=== PATIENT | female | born 1955 | race Two or more races ===

== ENCOUNTER 2017-07-29 18:15 | Inpatient (IN) | payer OTHER ==
[~2017-07-29] VITALS: Ht 154.9 cm; Wt 81.2 kg
[2017-07-29] MEDS ORDERED: LORAZEPAM 2MG/ML CPJ ONE ×2 (18:43→18:52)
[2017-07-29] MEDS ORDERED: SODIUM CHLORIDE 0.9% 1000ML BAG (SEPSIS BOLUS) IV ONE (19:00)
[2017-07-29] MEDS ORDERED: LORAZEPAM 2MG/ML CPJ IV ONE ×3 (19:00)
[2017-07-29] MEDS ORDERED: LEVETIRACETAM 500MG PREMIX 100 ML IV ONE (19:00)
[2017-07-29 19:50] LABS: BASOPHILS % 1.1 % (0.0-2.0); EOSINOPHILS % 4.4 % (0.0-5.0); HEMATOCRIT. 30.2 % (36.0-48.0); HEMOGLOBIN. 9.7 g/dL (12.0-16.0); LYMPHOCYTES % 15.3 % (20.0-50.0); MEAN CORPUSCULAR HEMOGLOBIN 25.8 pg (28.0-32.0); MEAN CORPUSCULAR VOLUME 80.5 fL (81.0-99.0); MEAN PLATELET VOLUME 8.8 fl (7.4-10.4); MONOCYTES % 5.7 % (2.0-8.0); NEUTROPHILS % 73.5 % (40.0-76.0); PLATELET 342 x1000/uL (130-400); RED BLOOD CELL COUNT 3.74 mill/uL (4.2-5.4); RED CELL DISTRIBUTION WIDTH 18.9 % (11.6-14.6)
[2017-07-29 19:56] LABS: PARTIAL THROMBOPLASTIN TIME 26.6 sec (23.4-31.0); PROTHROMBIN TIME 10.4 sec (9.4-11.6)
[2017-07-29 19:59] LABS: CARBON DIOXIDE 25 mEq/L (21-32); CHLORIDE 106 mEq/L (98-107); ETHANOL BLOOD < 10 mg/dL
[2017-07-29 20:04] LABS: TROPONIN I < 0.02 ng/mL (0.00-0.04)
[2017-07-29 23:00] VITALS: BP 121/55
[2017-07-29] MEDS ORDERED: MAGNESIUM/ALUMINUM HYDROXIDE/SIMETHICONE 30ML UDC PO PRN (23:00)
[2017-07-29] MEDS ORDERED: NA PHOS,M-B/NA PHOS,DI-BA ENEMA 118ML PR PRN (23:00)
[2017-07-29] MEDS ORDERED: ACETAMINOPHEN 650MG/20.3ML UDC GT PRN (23:00)
[2017-07-29] MEDS ORDERED: GUAIFENESIN 200MG/10ML SUGAR FREE UDC PO PRN (23:00)
[2017-07-29] MEDS ORDERED: DIPHENHYDRAMINE 50MG/ML VIAL IV PRN (23:00)
[2017-07-29] MEDS ORDERED: ONDANSETRON HCL 4MG/2ML VIAL IV PRN (23:00)
[2017-07-29] MEDS ORDERED: LORAZEPAM 2MG/ML CPJ IV PRN ×2 (23:00)
[2017-07-29] MEDS ORDERED: ACETAMINOPHEN 650MG SUPP PR PRN (23:00)
[2017-07-29] MEDS ORDERED: CLONIDINE 0.1MG TABLET PO PRN (23:00)
[2017-07-29] MEDS ORDERED: DOCUSATE SODIUM 100MG CAPSULE PO PRN (23:00)
[2017-07-29] MEDS ORDERED: IPRATROPIUM/ALBUTEROL 0.5-3(2.5)MG/3ML NEB INH PRN (23:00)
[2017-07-29 23:30] VITALS: BP 121/55
[2017-07-30] VITALS (16 sets, daily range): BP systolic 104–147; BP diastolic 54–82
[2017-07-30] MEDS: ENOXAPARIN 40MG/0.4ML SYR SUBCUT SCH ×2 (01:40→23:58)
[2017-07-30] MEDS: SODIUM CHLORIDE 0.45% 1,000 ML IV SCH ×2 (01:40→18:50)
[2017-07-30] MEDS: SODIUM CHLORIDE 0.9% INJ 3ML FLUSH IVF SCH ×3 (05:41→21:35)
[2017-07-30 07:11] LABS: EOSINOPHILS % 5.8 % (0.0-5.0); HEMATOCRIT. 30.7 % (36.0-48.0); LYMPHOCYTES % 23.6 % (20.0-50.0); MEAN CORPUSCULAR VOLUME 82.8 fL (81.0-99.0); MEAN PLATELET VOLUME 9.1 fl (7.4-10.4); MONOCYTES % 5.3 % (2.0-8.0); NEUTROPHILS % 64.3 % (40.0-76.0); PLATELET 275 x1000/uL (130-400); RED CELL DISTRIBUTION WIDTH 18.3 % (11.6-14.6)
[2017-07-30 07:20] LABS: CARBON DIOXIDE 23 mEq/L (21-32); CHLORIDE 105 mEq/L (98-107); HDL CHOLESTEROL 29 mg/dL (40-59); LDL CHOLESTEROL 85 mg/dL (5-100)
[2017-07-30] MEDS: LEVETIRACETAM 500MG TABLET PO SCH ×2 (09:58→21:35)
[2017-07-30] MEDS: ACETAMINOPHEN 325MG TABLET PO PRN (18:52)
[2017-07-31] VITALS (12 sets, daily range): BP systolic 120–158; BP diastolic 53–81
[2017-07-31] MEDS: ACETAMINOPHEN 325MG TABLET PO PRN ×2 (05:40→13:00)
[2017-07-31] MEDS: SODIUM CHLORIDE 0.9% INJ 3ML FLUSH IVF SCH (05:40)
[2017-07-31] MEDS: SODIUM CHLORIDE 0.45% 1,000 ML IV SCH (08:45)
[2017-07-31] MEDS: LEVETIRACETAM 500MG TABLET PO SCH (08:45)
[2017-07-31] MEDS ORDERED: KEPP500 PO (12:33)
[2017-07-31 12:43] LABS: CLARITY URINE CLEAR (CLEAR); COLOR URINE YELLOW (YELLOW); GLUCOSE URINE NEGATIVE (NEGATIVE); KETONES URINE NEGATIVE (NEGATIVE); LEUKOCYTE ESTERASE URINE TRACE (NEGATIVE); NITRITE URINE NEGATIVE (NEGATIVE); OCCULT BLOOD URINE NEGATIVE (NEGATIVE); PROTEIN URINE NEGATIVE (NEGATIVE); UROBILINOGEN URINE 0.2 E.U./dL (0.2-1.0)
[2017-07-31 13:01] LABS: *AMPHETAMINES SCREEN URINE NEGATIVE (NEGATIVE); *BARBITURATES SCREEN URINE NEGATIVE (NEGATIVE); *BENZODIAZEPINES SCREEN URINE NEGATIVE (NEGATIVE); *COCAINE SCREEN URINE NEGATIVE (NEGATIVE); CANNABINOID URINE SCREEN NEGATIVE (NEGATIVE); METHADONE URINE SCREEN NEGATIVE (NEGATIVE); OPIATES URINE SCREEN NEGATIVE (NEGATIVE); PHENCYCLIDINE URINE SCREEN NEGATIVE (NEGATIVE)
== END 2017-07-31 15:43 | disposition home or self-care (01) | DRG 53 ==
LOC: ER 18:15 → 5EST 20:35 → EDBD 20:35 → ENRESERV 21:17
PROVIDERS: ADMIT Family Medicine; ATTEND Family Medicine
DX: G40.911 Epilepsy, unspecified, intractable, with status epilepticus (principal); G93.89 Other specified disorders of brain; E44.1 Mild protein-calorie malnutrition; I10 Essential (primary) hypertension; D63.8 Anemia in other chronic diseases classified elsewhere; E11.9 Type 2 diabetes mellitus without complications; J32.0 Chronic maxillary sinusitis; J32.3 Chronic sphenoidal sinusitis; Z88.0 Allergy status to penicillin; Z90.12 Acquired absence of left breast and nipple
CPT/HCPCS: 36415; 70450; 71010; 80053; 80061; 80305; 81001; 82962; 83605; 83880; 84484; 85025; 85610; 85730; 86850; 86900; 87040; 87086; 93005; 96365; 96366; 97162; 99291; G0482; J1650; J1953; J2060; J7030

== ENCOUNTER 2017-10-04 23:01 | Emergency (ER) | payer OTHER ==
[~2017-10-04] VITALS: Ht 165.1 cm; Wt 72.0 kg
[~2017-10-04 23:01] MED LIST: KEPP500 PO
[2017-10-05] MEDS ORDERED: LEVETIRACETAM 500MG PREMIX 100 ML IV ONE (00:45)
[2017-10-05 01:09] LABS: BASOPHILS % 1.3 % (0.0-2.0); HEMATOCRIT. 30.8 % (36.0-48.0); LYMPHOCYTES % 11.7 % (20.0-50.0); MEAN CORPUSCULAR HEMOGLOBIN 23.8 pg (28.0-32.0); MEAN CORPUSCULAR VOLUME 73.5 fL (81.0-99.0); MONOCYTES % 4.7 % (2.0-8.0); NEUTROPHILS % 82.3 % (40.0-76.0); RED CELL DISTRIBUTION WIDTH 20.8 % (11.6-14.6)
[2017-10-05 01:21] LABS: CARBON DIOXIDE 28 mEq/L (21-32); CHLORIDE 94 mEq/L (98-107)
[2017-10-05 04:24] VITALS: BP 100/60
== END 2017-10-05 05:20 | disposition home or self-care (01) ==
LOC: ER 23:16
DX: G40.909 Epilepsy, unspecified, not intractable, without status epilepticus (principal); S00.512A Abrasion of oral cavity, initial encounter; E11.9 Type 2 diabetes mellitus without complications; Z88.0 Allergy status to penicillin; Z88.2 Allergy status to sulfonamides; Z91.14 Patient's other noncompliance with medication regimen; X58.XXXA Exposure to other specified factors, initial encounter; Y93.89 Activity, other specified; Y92.018 Other place in single-family (private) house as the place of occurrence of the external cause
CPT/HCPCS: 36415; 80048; 85025; 93005; 96365; 99285; J1953

== ENCOUNTER 2018-01-23 19:28 | Emergency (ER) | payer OTHER ==
[~2018-01-23] VITALS: Ht 165.1 cm; Wt 87.0 kg
[2018-01-23 20:44] LABS: BASOPHILS % 1.2 % (0.0-2.0); EOSINOPHILS % 6.5 % (0.0-5.0); HEMATOCRIT. 29.3 % (36.0-48.0); HEMOGLOBIN. 9.7 g/dL (12.0-16.0); LYMPHOCYTES % 28.7 % (20.0-50.0); MEAN CORPUSCULAR VOLUME 84.2 fL (81.0-99.0); MEAN PLATELET VOLUME 8.6 fl (7.4-10.4); MONOCYTES % 8.4 % (2.0-8.0); NEUTROPHILS % 55.2 % (40.0-76.0); PLATELET 379 x1000/uL (130-400); RED BLOOD CELL COUNT 3.48 mill/uL (4.2-5.4); RED CELL DISTRIBUTION WIDTH 20.1 % (11.6-14.6)
[2018-01-23 20:50] LABS: CHLORIDE 105 mEq/L (98-107)
[2018-01-23 20:51] LABS: PROTHROMBIN TIME 10.2 sec (9.4-11.6)
[2018-01-23] MEDS ORDERED: ONDANSETRON HCL 4MG/2ML VIAL IV STA (21:01)
[2018-01-23] MEDS ORDERED: SODIUM CHLORIDE 0.9% 1,000 ML IV ONE (21:01)
[2018-01-23] MEDS ORDERED: MORPHINE SULFATE 4 MG/ML CPJ (NOT FOR IM USE) IV STA (21:01)
[2018-01-23 23:08] LABS: CREATINE KINASE 74 IU/L (26-192)
[2018-01-24] MEDS ORDERED: IBUPROFEN 400MG TABLET PO ONE (01:30)
[2018-01-24 01:42] VITALS: BP 137/62
== END 2018-01-24 01:54 | disposition home or self-care (01) ==
LOC: ER 20:12
DX: S80.11XA Contusion of right lower leg, initial encounter (principal); S63.92XA Sprain of unspecified part of left wrist and hand, initial encounter; D64.9 Anemia, unspecified; M25.561 Pain in right knee; E11.9 Type 2 diabetes mellitus without complications; I10 Essential (primary) hypertension; Z88.0 Allergy status to penicillin; V79.3XXA Bus occupant (driver) (passenger) injured in unspecified nontraffic accident, initial encounter; Y93.89 Activity, other specified; Y92.480 Sidewalk as the place of occurrence of the external cause
CPT/HCPCS: 36415; 71045; 73130; 73562; 73590; 80053; 82550; 85025; 85610; 86850; 86900; 86901; 93005; 96361; 96374; 96375; 99285; J2270; J2405; J7030; L1830; Z7610

== ENCOUNTER 2018-07-12 12:48 | Emergency (ER) | payer OTHER ==
[~2018-07-12] VITALS: Ht 152.4 cm; Wt 82.0 kg
[2018-07-12] MEDS ORDERED: ONDANSETRON HCL 4MG/2ML INJ IV STA (17:21)
[2018-07-12] MEDS ORDERED: MORPHINE SULFATE 4 MG/ML CPJ (NOT FOR IM USE) IV STA ×2 (17:21→19:51)
[2018-07-12] MEDS ORDERED: MAGNESIUM/ALUMINUM HYDROXIDE/SIMETHICONE 30ML UDC PO STA (17:21)
[2018-07-12 17:37] LABS: CLARITY URINE CLEAR (CLEAR); COLOR URINE YELLOW (YELLOW); KETONES URINE NEGATIVE (NEGATIVE); LEUKOCYTE ESTERASE URINE NEGATIVE (NEGATIVE); NITRITE URINE NEGATIVE (NEGATIVE); OCCULT BLOOD URINE NEGATIVE (NEGATIVE); PROTEIN URINE NEGATIVE (NEGATIVE); SPECIFIC GRAVITY URINE 1.003 (1.005-1.030); UROBILINOGEN URINE 0.2 E.U./dL (0.2-1.0)
[2018-07-12 18:09] LABS: BASOPHILS % 1.2 % (0.0-2.0); EOSINOPHILS % 4.5 % (0.0-5.0); HEMOGLOBIN. 10.6 g/dL (12.0-16.0); LYMPHOCYTES % 22.8 % (20.0-50.0); MEAN CORPUSCULAR HEMOGLOBIN 31.8 pg (28.0-32.0); MEAN PLATELET VOLUME 9.4 fl (7.4-10.4); MONOCYTES % 8.8 % (2.0-8.0); NEUTROPHILS % 62.7 % (40.0-76.0); PLATELET 313 x1000/uL (130-400); RED BLOOD CELL COUNT 3.33 mill/uL (4.2-5.4); RED CELL DISTRIBUTION WIDTH 20.2 % (11.6-14.6)
[2018-07-12 18:15] LABS: CHLORIDE 104 mEq/L (98-107)
[2018-07-12 21:47] VITALS: BP 132/58
[2018-07-12] MEDS ORDERED: IOHEXOL-300 100 ML BOTTLE ONE (21:47)
== END 2018-07-12 21:50 | disposition home or self-care (01) ==
LOC: ER 12:48
DX: R10.12 Left upper quadrant pain (principal); M79.671 Pain in right foot; G40.909 Epilepsy, unspecified, not intractable, without status epilepticus; E11.9 Type 2 diabetes mellitus without complications; I10 Essential (primary) hypertension; Z90.49 Acquired absence of other specified parts of digestive tract; Z88.0 Allergy status to penicillin; Z88.2 Allergy status to sulfonamides
CPT/HCPCS: 36415; 71045; 73630; 74177; 80053; 81003; 83605; 83690; 83880; 84484; 85025; 85610; 93005; 96374; 96375; 96376; 99285; J2270; J2405; Q9967

== ENCOUNTER 2018-12-04 13:15 | Inpatient (IN) | payer OTHER ==
[~2018-12-04] VITALS: Ht 152.4 cm; Wt 93.4 kg
[2018-12-04] MEDS ORDERED: METF-416 PO (13:28)
[2018-12-04] MEDS ORDERED: ASPI-1159 PO (13:28)
[2018-12-04] MEDS ORDERED: RANI75TA19 PO (13:28)
[2018-12-04] MEDS ORDERED: LOSA100T14 PO (13:28)
[2018-12-04] MEDS ORDERED: RANI15SY PO (13:28)
[2018-12-04] MEDS ORDERED: NAPR-681 PO (13:28)
[2018-12-04] MEDS ORDERED: FOLI-43 PO (13:28)
[2018-12-04] MEDS ORDERED: MECL-109 PO (13:28)
[2018-12-04] MEDS ORDERED: METH2.5T PO (13:28)
[2018-12-04] MEDS ORDERED: ASPIRIN 81MG TABLET PO ONE (13:45)
[2018-12-04] MEDS: NITROGLYCERIN 0.4MG TABLET SL SL PRN ×4 (16:00→20:27)
[2018-12-04 16:41] LABS: CHLORIDE 103 mEq/L (98-107)
[2018-12-04 16:44] LABS: BASOPHILS % 0.4 % (0.0-2.0); EOSINOPHILS % 0.8 % (0.0-5.0); HEMATOCRIT. 29.8 % (36.0-48.0); HEMOGLOBIN. 9.9 g/dL (12.0-16.0); LYMPHOCYTES % 9.8 % (20.0-50.0); MEAN CORPUSCULAR HEMOGLOBIN 30.2 pg (28.0-32.0); MEAN CORPUSCULAR VOLUME 90.9 fL (81.0-99.0); MEAN PLATELET VOLUME 9.8 fl (7.4-10.4); MONOCYTES % 3.4 % (2.0-8.0); NEUTROPHILS % 85.6 % (40.0-76.0); PLATELET 320 x1000/uL (130-400); RED BLOOD CELL COUNT 3.28 mill/uL (4.2-5.4)
[2018-12-04 16:47] LABS: D-DIMER 0.8 mg/L FEU (<0.50); PARTIAL THROMBOPLASTIN TIME 29.4 sec (23.4-31.0); PROTHROMBIN TIME 10.5 sec (9.1-11.1)
[2018-12-04] MEDS ORDERED: SODIUM CHLORIDE 0.9% 1000ML BAG (SEPSIS BOLUS) IV ONE (17:15)
[2018-12-04] MEDS ORDERED: LEVOFLOXACIN 750MG PREMIX 150 ML IV ONE (17:15)
[2018-12-04 19:40] LABS: CLARITY URINE CLEAR (CLEAR); COLOR URINE YELLOW (YELLOW); KETONES URINE NEGATIVE (NEGATIVE); LEUKOCYTE ESTERASE URINE NEGATIVE (NEGATIVE); NITRITE URINE NEGATIVE (NEGATIVE); OCCULT BLOOD URINE NEGATIVE (NEGATIVE); PROTEIN URINE NEGATIVE (NEGATIVE); SPECIFIC GRAVITY URINE 1.007 (1.005-1.030); UROBILINOGEN URINE 0.2 E.U./dL (0.2-1.0)
[2018-12-04] MEDS ORDERED: ACETAMINOPHEN 325MG TABLET PO PRN (21:00)
[2018-12-04] MEDS ORDERED: CLONIDINE 0.1MG TABLET PO PRN (21:00)
[2018-12-04] MEDS ORDERED: KETOROLAC 30MG/ML VIAL IV PRN (21:00)
[2018-12-04] MEDS ORDERED: DEXTROSE 50% WATER 50ML SYRINGE IV PRN (21:00)
[2018-12-04] MEDS ORDERED: ONDANSETRON HCL 4MG/2ML INJ IV PRN (21:00)
[2018-12-04] MEDS ORDERED: LEVOFLOXACIN 500MG PREMIX 100 ML IV SCH (21:00)
[2018-12-04] MEDS ORDERED: MAGNESIUM/ALUMINUM HYDROXIDE/SIMETHICONE 30ML UDC PO PRN (21:00)
[2018-12-04] MEDS ORDERED: TEMAZEPAM 15MG CAPSULE PO PRN (21:15)
[2018-12-04] MEDS ORDERED: MAGNESIUM HYDROXIDE 400MG/5ML 30ML UDC PO PRN (21:15)
[2018-12-05] VITALS (8 sets, daily range): BP systolic 92–140; BP diastolic 47–83
[2018-12-05] MEDS ORDERED: IOHEXOL-350 100 ML BOTTLE ONE (02:04)
[2018-12-05] MEDS: SODIUM CHLORIDE 0.9% INJ 3ML FLUSH IVF SCH ×2 (02:25→14:03)
[2018-12-05] MEDS: HYDROMORPHONE HCL/PF 2MG/ML CPJ IV PRN ×2 (02:26→11:59)
[2018-12-05] MEDS: BLOOD SUGAR DIAGNOSTIC STRIP TEST SCH ×3 (07:40→17:07)
[2018-12-05] MEDS ORDERED: PNEUMOCOCCAL 23-VAL P-SAC VAC 0.5 ML IM ONE (08:00)
[2018-12-05] MEDS: INSULIN LISPRO 100 UNITS/ML SUBCUT SCH ×3 (08:10→17:19)
[2018-12-05] MEDS ORDERED: FAMOTIDINE 20MG TABLET PO SCH (09:00)
[2018-12-05] MEDS ORDERED: ENOXAPARIN 30MG/0.3ML SYR SUBCUT SCH (09:00)
[2018-12-05] MEDS ORDERED: PHEN100C4 PO (10:39)
[2018-12-05] MEDS ORDERED: LEVOFLOXACIN 500MG PREMIX 100 ML IV SCH (18:00)
[2018-12-05] MEDS ORDERED: PHENYTOIN SODIUM EXTENDED 100MG CAPSULE PO SCH (21:00)
== END 2018-12-05 20:03 | disposition home or self-care (01) | DRG 139 ==
LOC: ER 13:15 → 7WST 19:41 → EDBEDREQTM 19:51 → EDBEDREQ 19:51 → ENRESERV 22:44
PROVIDERS: ADMIT Internal Medicine; ATTEND Internal Medicine
DX: J18.9 Pneumonia, unspecified organism (principal); R65.10 Systemic inflammatory response syndrome (SIRS) of non-infectious origin without acute organ dysfunction; E83.51 Hypocalcemia; E87.1 Hypo-osmolality and hyponatremia; E44.1 Mild protein-calorie malnutrition; E11.9 Type 2 diabetes mellitus without complications; G40.909 Epilepsy, unspecified, not intractable, without status epilepticus; I10 Essential (primary) hypertension; M19.90 Unspecified osteoarthritis, unspecified site; Z82.49 Family history of ischemic heart disease and other diseases of the circulatory system; Z83.3 Family history of diabetes mellitus; Z90.49 Acquired absence of other specified parts of digestive tract; Z88.2 Allergy status to sulfonamides; Z88.0 Allergy status to penicillin; M94.0 Chondrocostal junction syndrome [Tietze]
CPT/HCPCS: 36415; 71045; 71275; 78582; 80185; 82962; 83605; 83880; 84484; 85379; 90732; 93005; 93970; 96374; 99285; A6261; A9558; J1170; J1650; J1815; J1885; J1956; J7030; Q9967

== ENCOUNTER 2019-11-28 19:28 | Inpatient (IN) | payer OTHER ==
[~2019-11-28] VITALS: Ht 157.5 cm; Wt 85.7 kg
[~2019-11-28 19:28] MED LIST changes: +ASPI-1497 PO; +FOLI-43 PO; +LOSA100T32 PO; +MECL-159 PO; +METF-416 PO; +METH2.5T PO; +NAPR-681 PO; +PHEN100C4 PO; +RANI-383 PO
[2019-11-28] MEDS ORDERED: SODIUM CHLORIDE 0.9% 1,000 ML IV ONE (19:48)
[2019-11-28] MEDS ORDERED: LEVETIRACETAM 500MG PREMIX 100 ML IV ONE (20:00)
[2019-11-28] MEDS ORDERED: LORAZEPAM 2MG/ML CPJ ONE (20:28)
[2019-11-28] MEDS ORDERED: LORAZEPAM 2MG/ML CPJ IV ONE (20:30)
[2019-11-28 20:52] LABS: BASOPHILS % 0.7 % (0.0-2.0); EOSINOPHILS % 0.2 % (0.0-5.0); HEMOGLOBIN. 11.5 g/dL (12.0-16.0); LYMPHOCYTES % 8.3 % (20.0-50.0); MEAN PLATELET VOLUME 10.3 fl (7.4-10.4); MONOCYTES % 1.8 % (2.0-8.0); PLATELET 379 x1000/uL (130-400); RED BLOOD CELL COUNT 3.72 mill/uL (4.2-5.4); RED CELL DISTRIBUTION WIDTH 20.4 % (11.6-14.6)
[2019-11-28 20:56] LABS: CHLORIDE 102 mEq/L (98-107)
[2019-11-28 21:00] LABS: CLARITY URINE CLEAR (CLEAR); COLOR URINE YELLOW (YELLOW); KETONES URINE NEGATIVE (NEGATIVE); LEUKOCYTE ESTERASE URINE NEGATIVE (NEGATIVE); NITRITE URINE NEGATIVE (NEGATIVE); OCCULT BLOOD URINE NEGATIVE (NEGATIVE); PROTEIN URINE 2+ (NEGATIVE); SPECIFIC GRAVITY URINE 1.015 (1.005-1.030); UROBILINOGEN URINE 0.2 E.U./dL (0.2-1.0)
[2019-11-28 21:02] LABS: ETHANOL BLOOD < 10 mg/dL
[2019-11-28 21:05] LABS: CREATINE KINASE 226 IU/L (26-192); PHENOBARBITAL 3.7 ug/mL (15.0-40.0); VALPROIC ACID <3.0 ug/mL ug/mL (50-100)
[2019-11-28 21:06] LABS: PARTIAL THROMBOPLASTIN TIME 27.8 sec (23.4-31.0); PROTHROMBIN TIME 10.4 sec (9.6-11.0)
[2019-11-28 21:15] LABS: HCG SCREEN NEGATIVE
[2019-11-28 21:16] LABS: CARBAMAZEPINE < 0.5 ug/mL (4-12)
[2019-11-28 21:22] LABS: *AMPHETAMINES SCREEN URINE NEGATIVE (NEGATIVE); *BARBITURATES SCREEN URINE NEGATIVE (NEGATIVE)
[2019-11-28 21:23] LABS: *BENZODIAZEPINES SCREEN URINE NEGATIVE (NEGATIVE); *COCAINE SCREEN URINE NEGATIVE (NEGATIVE); CANNABINOID URINE SCREEN NEGATIVE (NEGATIVE); OPIATES URINE SCREEN NEGATIVE (NEGATIVE); PHENCYCLIDINE URINE SCREEN NEGATIVE (NEGATIVE)
[2019-11-28 21:24] LABS: METHADONE URINE SCREEN NEGATIVE (NEGATIVE)
[2019-11-29 05:56] LABS: CHLORIDE 108 mEq/L (98-107)
[2019-11-29 05:59] LABS: BASOPHILS % 0.3 % (0.0-2.0); HEMATOCRIT. 29.9 % (36.0-48.0); HEMOGLOBIN. 10.4 g/dL (12.0-16.0); LYMPHOCYTES % 9.7 % (20.0-50.0); MEAN CORPUSCULAR HEMOGLOBIN 34.7 pg (28.0-32.0); MEAN CORPUSCULAR VOLUME 99.6 fL (81.0-99.0); MONOCYTES % 3.1 % (2.0-8.0); NEUTROPHILS % 86.9 % (40.0-76.0); PLATELET 352 x1000/uL (130-400)
[2019-11-29] MEDS ORDERED: LEVETIRACETAM 500MG PREMIX 100 ML IV SCH (06:15)
[2019-11-29] MEDS ORDERED: MECLIZINE 25MG TABLET PO PRN (08:00)
[2019-11-29] MEDS ORDERED: METHOTREXATE SODIUM 2 . 5MG TABLET PO SCH (09:00)
[2019-11-29 10:30] VITALS: BP 145/68
[2019-11-29] MEDS: ASPIRIN 81MG EC TABLET PO SCH (11:11)
[2019-11-29] MEDS: PHENYTOIN SODIUM EXTENDED 100MG CAPSULE PO SCH ×3 (11:11→20:12)
[2019-11-29] MEDS: LEVETIRACETAM 500MG TABLET PO SCH ×2 (11:12→20:12)
[2019-11-29] MEDS: FOLIC ACID 1MG TABLET PO SCH (11:12)
[2019-11-29] MEDS: LOSARTAN POTASSIUM 100 MG TABLET PO SCH (11:12)
[2019-11-29] MEDS: LEVOFLOXACIN 500MG TABLET PO SCH (11:12)
[2019-11-29 12:00] VITALS: BP 117/48
[2019-11-29] MEDS: SODIUM CHLORIDE 0.45% 1,000 ML IV SCH ×2 (12:58→22:09)
[2019-11-29] MEDS ORDERED: ACETAMINOPHEN 325MG TABLET PO PRN (13:00)
[2019-11-29] MEDS ORDERED: GUAIFENESIN-DM 200MG-20MG/10ML UDC PO PRN (13:00)
[2019-11-29 16:00] VITALS: BP 124/46
[2019-11-29] MEDS ORDERED: GUAIFENESIN 200MG/10ML SUGAR FREE UDC PO PRN (17:41)
[2019-11-29 20:00] VITALS: BP 112/55
[2019-11-30] VITALS: BP 118/58
[2019-11-30 04:00] VITALS: BP 127/54
[2019-11-30] MEDS: PHENYTOIN SODIUM EXTENDED 100MG CAPSULE PO SCH ×2 (06:27→14:49)
[2019-11-30 07:27] LABS: BASOPHILS % 1.2 % (0.0-2.0); EOSINOPHILS % 5.7 % (0.0-5.0); HEMATOCRIT. 30.9 % (36.0-48.0); HEMOGLOBIN. 10.7 g/dL (12.0-16.0); LYMPHOCYTES % 26.8 % (20.0-50.0); MEAN CORPUSCULAR HEMOGLOBIN 33.3 pg (28.0-32.0); MEAN CORPUSCULAR VOLUME 96.5 fL (81.0-99.0); MEAN PLATELET VOLUME 9.8 fl (7.4-10.4); MONOCYTES % 5.9 % (2.0-8.0); NEUTROPHILS % 60.4 % (40.0-76.0); PLATELET 335 x1000/uL (130-400); RED BLOOD CELL COUNT 3.21 mill/uL (4.2-5.4); RED CELL DISTRIBUTION WIDTH 20.3 % (11.6-14.6)
[2019-11-30 08:00] VITALS: BP 136/54
[2019-11-30 08:17] LABS: CHLORIDE 109 mEq/L (98-107)
[2019-11-30] MEDS: FOLIC ACID 1MG TABLET PO SCH (08:48)
[2019-11-30] MEDS: ASPIRIN 81MG EC TABLET PO SCH (08:48)
[2019-11-30] MEDS: LEVETIRACETAM 500MG TABLET PO SCH (08:48)
[2019-11-30] MEDS: LOSARTAN POTASSIUM 100 MG TABLET PO SCH (08:48)
[2019-11-30] MEDS: SODIUM CHLORIDE 0.45% 1,000 ML IV SCH (11:31)
[2019-11-30] MEDS: LEVOFLOXACIN 500MG TABLET PO SCH (11:31)
[2019-11-30 12:00] VITALS: BP 124/53
[2019-11-30] MEDS ORDERED: LEVO500T2 MT (12:50)
[2019-11-30 15:17] VITALS: BP 124/53
[2019-12-04] MEDS ORDERED: METHOTREXATE SODIUM 2 . 5MG TABLET PO SCH ×2 (09:00→16:38)
== END 2019-11-30 17:00 | disposition home or self-care (01) | DRG 53 ==
LOC: ER 19:28 → 7WST 11-29 01:25 → EDBEDREQTM 11-29 01:28 → EDBEDREQ 11-29 01:28 → EDBEDREQSVC 11-29 01:28 → EDBEDREQDT 11-29 01:28 → EDBEDREQSVC 11-29 07:03 → ENRESERV 11-29 08:05 → 7WST 11-30 08:17
PROVIDERS: ADMIT Family Medicine; ATTEND Family Medicine
DX: G40.409 Other generalized epilepsy and epileptic syndromes, not intractable, without status epilepticus (principal); E66.01 Morbid (severe) obesity due to excess calories; D72.829 Elevated white blood cell count, unspecified; E11.9 Type 2 diabetes mellitus without complications; I10 Essential (primary) hypertension; Z68.34 Body mass index [BMI] 34.0-34.9, adult; Z88.9 Allergy status to unspecified drugs, medicaments and biological substances; Z90.12 Acquired absence of left breast and nipple; Z90.49 Acquired absence of other specified parts of digestive tract; Z88.0 Allergy status to penicillin; Z88.2 Allergy status to sulfonamides; Z79.82 Long term (current) use of aspirin; Z79.84 Long term (current) use of oral hypoglycemic drugs; Z79.899 Other long term (current) drug therapy
CPT/HCPCS: 36415; 71045; 80048; 80053; 80156; 80165; 80184; 80185; 80305; 80320; 81003; 82140; 82550; 82962; 83880; 84443; 84484; 84703; 85025; 93005; 96365; 96366; 96367; 96375; 99285; J1953; J2060; J7030; G0480

== ENCOUNTER 2020-01-01 14:51 | Inpatient (IN) | payer OTHER ==
[~2020-01-01] VITALS: Ht 152.4 cm; Wt 88.5 kg
[~2020-01-01 14:51] MED LIST changes: +LEVO500T2 MT
[2020-01-01] MEDS ORDERED: ASPIRIN 81MG TABLET PO ONE (16:15)
[2020-01-01] MEDS ORDERED: KETOROLAC 30MG/ML VIAL IV ONE (16:15)
[2020-01-01 16:42] LABS: CHLORIDE 108 mEq/L (98-107)
[2020-01-01 16:45] LABS: EOSINOPHILS % 6.6 % (0.0-5.0); HEMATOCRIT. 33.3 % (36.0-48.0); HEMOGLOBIN. 11.3 g/dL (12.0-16.0); LYMPHOCYTES % 36.3 % (20.0-50.0); MEAN CORPUSCULAR HEMOGLOBIN 33.6 pg (28.0-32.0); MEAN PLATELET VOLUME 9.1 fl (7.4-10.4); MONOCYTES % 7.6 % (2.0-8.0); NEUTROPHILS % 48.5 % (40.0-76.0); PLATELET 262 x1000/uL (130-400); RED BLOOD CELL COUNT 3.36 mill/uL (4.2-5.4); RED CELL DISTRIBUTION WIDTH 19.5 % (11.6-14.6)
[2020-01-01] MEDS ORDERED: PHEN300C6 MT (17:23)
[2020-01-01 17:33] LABS: *BENZODIAZEPINES SCREEN URINE NEGATIVE (NEGATIVE); *COCAINE SCREEN URINE NEGATIVE (NEGATIVE); METHADONE URINE SCREEN NEGATIVE (NEGATIVE); PHENCYCLIDINE URINE SCREEN NEGATIVE (NEGATIVE)
[2020-01-01 17:34] LABS: *AMPHETAMINES SCREEN URINE NEGATIVE (NEGATIVE); *BARBITURATES SCREEN URINE NEGATIVE (NEGATIVE); CANNABINOID URINE SCREEN NEGATIVE (NEGATIVE)
[2020-01-01] MEDS ORDERED: PHENYTOIN SODIUM 500 MG in SODIUM CHLORIDE 0.9% 50 ML IV ONE (18:00)
[2020-01-01] MEDS ORDERED: MORPHINE SULFATE 2 MG/ML CPJ (NOT FOR IM USE) IV PRN (20:30)
[2020-01-02] MEDS ORDERED: DEXTROSE 50% WATER 50ML SYRINGE IV PRN (08:45)
[2020-01-02] MEDS ORDERED: ACETAMINOPHEN 325MG TABLET PO PRN (08:45)
[2020-01-02] MEDS ORDERED: ONDANSETRON HCL 4MG/2ML INJ IV PRN (08:45)
[2020-01-02] MEDS: LEVETIRACETAM 500MG TABLET PO SCH ×2 (09:00→21:38)
[2020-01-02] MEDS: BLOOD SUGAR DIAGNOSTIC STRIP TEST SCH ×4 (09:00→21:00)
[2020-01-02] MEDS: ASPIRIN 81MG TABLET PO SCH (09:00)
[2020-01-02] MEDS: LOSARTAN POTASSIUM 100 MG TABLET PO SCH (09:00)
[2020-01-02] MEDS: KETOROLAC 15MG/ML VIAL IV PRN ×2 (10:13→16:16)
[2020-01-02] MEDS: INSULIN LISPRO 100 UNITS/ML SUBCUT SCH ×2 (15:30→21:00)
[2020-01-02 18:00] VITALS: BP 132/50
[2020-01-02 20:00] VITALS: BP 130/55
[2020-01-02 20:16] LABS: OPIATES URINE SCREEN PRESUMTIVE POSITIVE (NEGATIVE)
[2020-01-02] MEDS ORDERED: FAMOTIDINE 20MG TABLET PO SCH (21:00)
[2020-01-02] MEDS ORDERED: PHENYTOIN SODIUM EXTENDED 100MG CAPSULE PO SCH (21:00)
[2020-01-02 23:18] VITALS: BP 130/55
[2020-01-03] VITALS: BP 133/57
[2020-01-03] MEDS: KETOROLAC 15MG/ML VIAL IV PRN (00:34)
[2020-01-03 04:00] VITALS: BP 108/48
[2020-01-03 07:11] LABS: BASOPHILS % 1.1 % (0.0-2.0); EOSINOPHILS % 6.8 % (0.0-5.0); HEMATOCRIT. 32.1 % (36.0-48.0); HEMOGLOBIN. 11.2 g/dL (12.0-16.0); LYMPHOCYTES % 39.3 % (20.0-50.0); MEAN CORPUSCULAR VOLUME 97.3 fL (81.0-99.0); MONOCYTES % 7.8 % (2.0-8.0); PLATELET 150 x1000/uL (130-400); RED CELL DISTRIBUTION WIDTH 19.7 % (11.6-14.6)
[2020-01-03 07:21] LABS: CHLORIDE 110 mEq/L (98-107)
[2020-01-03] MEDS: BLOOD SUGAR DIAGNOSTIC STRIP TEST SCH ×2 (07:40→12:40)
[2020-01-03 08:00] VITALS: BP 144/62
[2020-01-03] MEDS: INSULIN LISPRO 100 UNITS/ML SUBCUT SCH ×2 (08:10→15:30)
[2020-01-03] MEDS: ASPIRIN 81MG TABLET PO SCH (08:55)
[2020-01-03] MEDS: LEVETIRACETAM 500MG TABLET PO SCH (08:55)
[2020-01-03] MEDS: LOSARTAN POTASSIUM 100 MG TABLET PO SCH (08:55)
[2020-01-03] MEDS ORDERED: LACTULOSE 20G/30ML UDC PO NR (09:45)
[2020-01-03] MEDS ORDERED: LORAZEPAM 2MG/ML CPJ IV NR (10:15)
[2020-01-03 12:00] VITALS: BP 138/50
[2020-01-03] MEDS ORDERED: LIDOCAINE HCL 1% 20ML VIAL (Pyxis) INJ ONE (12:57)
[2020-01-03 16:00] VITALS: BP 123/52
[2020-01-03 17:24] VITALS: BP 123/52
== END 2020-01-03 18:20 | disposition home or self-care (01) | DRG 203 ==
LOC: ER 15:01 → EDBEDREQTM 17:54 → EDBEDREQ 17:54 → ENRESERV 01-02 16:56 → 7WST 01-02 17:52
PROVIDERS: ADMIT Internal Medicine; ATTEND Internal Medicine
PROC: 02HV33Z Insertion of Infusion Device into Superior Vena Cava, Percutaneous Approach (ICD-10-PCS; principal; 2020-01-03)
PROC: B548ZZA Ultrasonography of Superior Vena Cava, Guidance (ICD-10-PCS; 2020-01-03)
PROC: B5181ZA Fluoroscopy of Superior Vena Cava using Low Osmolar Contrast, Guidance (ICD-10-PCS; 2020-01-03)
DX: R07.89 Other chest pain (principal); E11.9 Type 2 diabetes mellitus without complications; E66.9 Obesity, unspecified; G40.909 Epilepsy, unspecified, not intractable, without status epilepticus; I10 Essential (primary) hypertension; M25.78 Osteophyte, vertebrae; M50.30 Other cervical disc degeneration, unspecified cervical region; Z86.011 Personal history of benign neoplasm of the brain; Z90.49 Acquired absence of other specified parts of digestive tract; Z88.0 Allergy status to penicillin; Z88.2 Allergy status to sulfonamides; Z88.8 Allergy status to other drugs, medicaments and biological substances; Z79.899 Other long term (current) drug therapy
CPT/HCPCS: 36415; 36573; 70551; 71045; 76937; 80048; 80053; 80185; 80305; 82962; 83735; 83880; 84484; 85025; 85379; 93005; 93306; 99291; C1725; J1165; J1815; J1885; J2060; J2270; J3490

== ENCOUNTER 2021-10-05 21:36 | Emergency (ER) | payer OTHER ==
[~2021-10-05] VITALS: Ht 154.9 cm; Wt 91.0 kg
[~2021-10-05 21:36] MED LIST changes: -LEVO500T2 MT; -PHEN100C4 PO; +PHEN300C6 MT
[2021-10-06] MEDS ORDERED: ONDANSETRON HCL 4MG/2ML INJ IV STA (01:50)
[2021-10-06] MEDS ORDERED: HYDROCODONE/ACETAMINOPHEN 5/325MG TABLET PO STA (01:50)
[2021-10-06] MEDS ORDERED: SODIUM CHLORIDE 0.9% 1,000 ML IV ONE (02:00)
[2021-10-06 03:53] LABS: EOSINOPHILS % 7.1 % (0.0-5.0); HEMATOCRIT. 30.9 % (36.0-48.0); HEMOGLOBIN. 10.3 g/dL (12.0-16.0); LYMPHOCYTES % 40.2 % (20.0-50.0); MEAN CORPUSCULAR HEMOGLOBIN 30.7 pg (28.0-32.0); MEAN CORPUSCULAR VOLUME 91.8 fL (81.0-99.0); MEAN PLATELET VOLUME 8.7 fl (7.4-10.4); MONOCYTES % 12.6 % (2.0-8.0); NEUTROPHILS % 39.1 % (40.0-76.0); PLATELET 350 x1000/uL (130-400); RED BLOOD CELL COUNT 3.37 mill/uL (4.2-5.4); RED CELL DISTRIBUTION WIDTH 20.4 % (11.6-14.6)
[2021-10-06 03:59] LABS: CHLORIDE 108 mEq/L (98-107); PROTHROMBIN TIME 10.6 sec (9.6-11.0)
[2021-10-06 04:06] LABS: ETHANOL BLOOD < 10 mg/dL
[2021-10-06 05:09] LABS: CLARITY URINE CLEAR (CLEAR); COLOR URINE YELLOW (YELLOW); KETONES URINE NEGATIVE (NEGATIVE); LEUKOCYTE ESTERASE URINE 1+ (NEGATIVE); NITRITE URINE NEGATIVE (NEGATIVE); OCCULT BLOOD URINE NEGATIVE (NEGATIVE); PROTEIN URINE NEGATIVE (NEGATIVE); SPECIFIC GRAVITY URINE 1.011 (1.005-1.030); UROBILINOGEN URINE 0.2 E.U./dL (0.2-1.0)
[2021-10-06 05:30] LABS: *AMPHETAMINES SCREEN URINE NEGATIVE (NEGATIVE); *BARBITURATES SCREEN URINE NEGATIVE (NEGATIVE); *BENZODIAZEPINES SCREEN URINE NEGATIVE (NEGATIVE); *COCAINE SCREEN URINE NEGATIVE (NEGATIVE); CANNABINOID URINE SCREEN NEGATIVE (NEGATIVE); METHADONE URINE SCREEN NEGATIVE (NEGATIVE); OPIATES URINE SCREEN NEGATIVE (NEGATIVE); PHENCYCLIDINE URINE SCREEN NEGATIVE (NEGATIVE)
[2021-10-06 06:43] VITALS: BP 140/80
[2021-10-06] MEDS ORDERED: IOHEXOL-300 100 ML BOTTLE ONE (06:54)
== END 2021-10-06 06:46 | disposition home or self-care (01) ==
LOC: ER 21:36
DX: K52.9 Noninfective gastroenteritis and colitis, unspecified (principal); E11.9 Type 2 diabetes mellitus without complications; I10 Essential (primary) hypertension; Z90.49 Acquired absence of other specified parts of digestive tract; Z79.899 Other long term (current) drug therapy; Z88.0 Allergy status to penicillin
CPT/HCPCS: 36415; 74177; 80053; 80305; 80320; 81003; 83605; 83690; 83880; 84484; 85025; 85610; 93005; 96361; 96374; 99285; J2405; J7030; Q9967; Z7610; G0480

== ENCOUNTER 2021-10-10 12:06 | Emergency (ER) | payer OTHER ==
[~2021-10-10] VITALS: Ht 162.6 cm; Wt 65.0 kg
[2021-10-10 14:57] LABS: BASOPHILS % 1.2 % (0.0-2.0); EOSINOPHILS % 6.7 % (0.0-5.0); HEMATOCRIT. 32.8 % (36.0-48.0); HEMOGLOBIN. 10.9 g/dL (12.0-16.0); LYMPHOCYTES % 34.7 % (20.0-50.0); MEAN CORPUSCULAR HEMOGLOBIN 30.1 pg (28.0-32.0); MEAN CORPUSCULAR VOLUME 90.8 fL (81.0-99.0); MEAN PLATELET VOLUME 8.6 fl (7.4-10.4); MONOCYTES % 7.9 % (2.0-8.0); NEUTROPHILS % 49.5 % (40.0-76.0); PLATELET 346 x1000/uL (130-400); RED BLOOD CELL COUNT 3.62 mill/uL (4.2-5.4); RED CELL DISTRIBUTION WIDTH 20.2 % (11.6-14.6)
[2021-10-10] MEDS ORDERED: LIDOCAINE HCL 1% 10 MG/ML 10ML VIAL ONE (15:01)
[2021-10-10 15:03] LABS: CHLORIDE 106 mEq/L (98-107)
[2021-10-10] MEDS ORDERED: ASPIRIN 81MG TABLET PO ONE (19:15)
[2021-10-10 20:00] VITALS: BP 137/90
== END 2021-10-10 21:01 | disposition short-term general hospital (02) ==
LOC: ER 12:06 → CANBEDREQ 23:19
DX: R07.89 Other chest pain (principal); I10 Essential (primary) hypertension; D64.9 Anemia, unspecified; Z88.0 Allergy status to penicillin; Z88.2 Allergy status to sulfonamides
CPT/HCPCS: 36415; 71045; 76937; 80053; 83880; 84484; 85025; 93005; 99285; C1725; J3490